=== PATIENT | female | born 1995 | race Caucasian/White ===

== ENCOUNTER 2022-09-16 19:48 | Emergency (ER) | payer OTHER, SELFPAY ==
--- NOTE | 2022-09-16 19:54 | ED_ITS ---
HPI - General Adult General Chief complaint: Urogenital-Female Stated complaint: UTI symptoms, says dehydrated (1 week) Time Seen by Provider: 09/16/22 19:50 History of Present Illness HPI narrative: 27-year-old female nonsmoker with noncontributory medical history presents with a chief complaint of dysuria, frequency and urgency for about 1 week. She states her symptoms have persisted over that time frame are not necessarily any worse but not going away. She denies other symptoms such as dizziness, weakness or lightheadedness. She has no chest pain or shortness of breath and denies any abdominal pain. She denies vaginal bleeding or discharge. She states that she is sexually active but is and has only a single partner. She had an IUD removed about 1 month ago but otherwise unremarkable recent medical history. She denies any systemic complaints such as dizziness, weakness or lightheadedness as mentioned before, additionally no fever no back pain or suprapubic tenderness Review of Systems Review of Systems Narrative: GENERAL: Denies chills, fatigue, malaise, fever, sweats. HEENT: Denies sinus pain, ear pain, sore throat, difficulty swallowing, dizziness. RESPIRATORY: Denies dyspnea, cough, wheezing, hemoptysis, sputum. CARDIOVASCULAR: Denies chest pain, palpitations, orthopnea, edema, GASTROINTESTINAL: Denies nausea, vomiting, abdominal pain, diarrhea, constipation, melena. : See HPI MUSCULOSKELETAL: denies weakness, joint pain, or bony pain SKIN: Denies rash, skin lesions, or other NEUROLOGIC: Denies weakness, headache, numbness, change in speech, confusion, seizures, incoordination. PSYCHIATRIC: No concerning psychosocial issues. 12 point review of systems is negative except for those stated above Patient History Social History Smoking Status: Never smoker Exam Narrative Exam Narrative: GEN: AOx3 and in mild distress EYES: Pupils are equal, round, and reactive to light and accommodation. Extraoccular muscles are intact bilaterally. There is no subconjunctival hemorrhage or exudate. CHEST: Lungs are clear to auscultation bilaterally and free of wheezes, rales, or rhonchi. Heart rate is regular rhythm, there are no murmurs, clicks, rubs, or gallops. There is no chest wall tenderness. ABD: Abdomen is soft and nontender. There is no guarding or rebound. Bowel sounds are normal in all 4 quadrants. There is no mass or organomegaly. EXT: Full painless ROM of all extremities with no loss of sensation or strength. SKIN: Warm, pink, and dry. No erythema or rash Initial Vital Signs Initial Vital Signs: Vital Signs Temperature 97.9 F 09/16/22 20:11 Pulse Rate 78 09/16/22 20:11 Respiratory Rate 20 09/16/22 20:11 Blood Pressure 138/84 09/16/22 20:11 Pulse Oximetry 99 09/16/22 20:11 Oxygen Delivery Method 09/16/22 20:11 Course Orders Ordered: ED Orders 09/16/22 22:16 Chlamydia Gonorrhea PCR -URINE Stat Miscellaneous to [facility] Stat Wet Prep Tric BV Lianet Stat Vital Signs Vital signs: Vital Signs - 8 hr 09/17/22 02:26 Pulse Rate 60 Respiratory Rate 14 Blood Pressure 122/74 Pulse Oximetry 100 Oxygen Delivery Method Room Air Medical Decision Making Lab Data Labs: Lab Results 09/16/22 Range/Units 22:16 Ur Chlamydia DNA (PCR) Not detected N gonorrhoeae DNA (PCR) Not detected Point of Care Testing Test Results Negative Urine Dip Bedside Urine Glucose Negative Bedside Urine Bilirubin - Negative Bedside Urine Ketone - Negative Urine Specific [place] 1.020 Bedside Urine Occult Blood - Negative Bedside Urine pH 6.0 Bedside Urine Protein - Negative Bedside Urine Urobilinogen - Negative Bedside Urine Nitrite - Negative Bedside Urine Leukocytes - Negative Esterase Point of care testing: Point of Care Testing Test Results Negative Urine Dip Bedside Urine Glucose Negative Bedside Urine Bilirubin - Negative Bedside Urine Ketone - Negative Urine Specific [place] 1.020 Bedside Urine Occult Blood - Negative Bedside Urine pH 6.0 Bedside Urine Protein - Negative Bedside Urine Urobilinogen - Negative Bedside Urine Nitrite - Negative Bedside Urine Leukocytes - Negative Esterase MDM Narrative Medical decision making narrative: Patient presents with rather classic UTI symptoms including dysuria, frequency and urgency. She is had no hematuria or systemic complaints. She is not recently been on antibiotics. She denies vaginal bleeding or discharge. We have performed to urine exams and both are absent of any evidence of infection. She was then instructed by nursing to perform self swabs and urine was sent for GC which is also negative. There is no clear etiology of her dysuria at this time but no sign of infection or STD. Some cultures pending, return precautions discussed and questions answered to her apparent satisfaction Discharge Plan Departure Patient Disposition: Home Clinical Impression: Dysuria Instructions: DI for Dysuria -- Adult Activity Restrictions/Additional Instructions: *You have been diagnosed with [dysuria. As we discussed though your signs and symptoms would suggest you have a urine infection we tested you twice and there is no indication of infection common furthermore we tested for pelvic infections too, which have been negative thusfar. There is still an outstanding culture which may take a few days to result, we will call you if any specific treatment would be needed, no news is good news] *What to do: *Please continue to take your regular medications as directed. *Please follow up with your primary care provider in 2-3 days, call for an appointment. Let them know you were seen in the Emergency Department and that we ask that you be seen in follow up. We will electronically transmit a record of today's note if your PCP is in our system *If you do not have a primary care provider please contact the [facility] Resource line at [phone]. They will ask some questions about your medical history and help get you set up with a doctor in the community. *Return to Emergency Department if you should have any new, worsening or concerning symptoms, such as [fever greater than 101 F, shaking chills, worsening pain, persistent vomiting or other bothersome symptoms] Referrals: Drake Khalil [Primary Care Provider] - Visit Report Forms: Patient Portal/API
[2022-09-16 20:11] VITALS: BP 138/84; PULSE 78; RESP 20; TEMP 36.6; O2SAT 99; BMI 35.4
[2022-09-17 02:05] LABS: Urine Chlamydia NOT DETECTED; Urine N gonorrhoeae NOT DETECTED
[2022-09-17 02:26] VITALS: BP 122/74; PULSE 60; RESP 14; O2SAT 100
== END 2022-09-17 02:27 | disposition home or self-care (01) ==
PROVIDERS: Emergency Provider Emergency Medicine
DX: R30.0 Dysuria (principal)
CPT/HCPCS: 81003; 81025; 87210; 87252; 87491; 87591; 99282

== ENCOUNTER 2022-12-07 12:02 | Emergency (ER) | payer OTHER, SELFPAY ==
[2022-12-07 12:05] VITALS: BP 116/66; PULSE 69; RESP 16; TEMP 36.4; O2SAT 96; BMI 38.2
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
[2022-12-07] MEDS: FLUORESCEIN 1 MG STRIP EYE-RIGHT (14:34)
== END 2022-12-07 14:58 | disposition home or self-care (01) ==
PROVIDERS: Emergency Provider Registered Nurse
DX: S05.91XA Unspecified injury of right eye and orbit, initial encounter (principal); W22.8XXA Striking against or struck by other objects, initial encounter
CPT/HCPCS: 99282

== ENCOUNTER 2022-12-12 08:57 | Emergency (ER) | payer OTHER, SELFPAY ==
[2022-12-12 09:04] VITALS: BP 131/77; PULSE 57; RESP 15; TEMP 36.9; O2SAT 98; BMI 38.2
[2022-12-12] MEDS: PROPARACAINE 0.5% OPHTH SOL 1 DROPS EYE-BOTH (09:48)
[2022-12-12] MEDS: FLUORESCEIN 1 MG STRIP EYE-RIGHT (09:50)
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
[2022-12-12] MEDS: TRAMADOL 50 MG TABLET PO (11:24)
[2022-12-12 11:28] VITALS: BP 123/60; PULSE 58; RESP 16; O2SAT 99
== END 2022-12-12 11:29 | disposition home or self-care (01) ==
PROVIDERS: Emergency Provider Emergency Medicine
DX: S05.8X1A Other injuries of right eye and orbit, initial encounter (principal)
CPT/HCPCS: 99283

== ENCOUNTER 2023-06-18 17:07 | Emergency (ER) | payer OTHER, SELFPAY ==
[2023-06-18 17:11] VITALS: BP 140/85; PULSE 97; RESP 18; TEMP 36.7; O2SAT 99; BMI 38.2
--- NOTE | 2023-06-18 17:17 | DI.RAD.S_ITS ---
PROCEDURE: XR CHEST 2V INDICATIONS: cough x 2 weeks, congestion TECHNIQUE: 2 views of the chest were acquired. COMPARISON: None. FINDINGS: Surgical changes and devices: None. Lungs and pleura: Lungs are clear. No pleural effusions or pneumothorax. Mediastinum: Mediastinal contours are normal. Heart size is normal. Bones and chest wall: No suspicious bony abnormalities. Soft tissues appear unremarkable. IMPRESSION: No acute cardiopulmonary abnormality. Dictated by: Josh Trimble M.D. on 06/18/2023 at 17:42 Approved by: Josh Trimble M.D. on 06/18/2023 at 17:43
--- NOTE | 2023-06-18 18:30 | ED.URI ---
HPI - URI/Sore Throat <Ara Capps PA-C - Last Filed: 06/18/23 18:36> General Chief Complaint: Upper Respiratory Symptoms Stated Complaint: possible pneumonia Time Seen by Provider: 06/18/23 17:55 Source: patient Mode of arrival: Ambulatory History of Present Illness HPI Narrative: Patient is a 28-year-old female who presents with 2 weeks of cough. She describes the cough being productive at times, a tactile fever without chills, some upper respiratory congestion. She has seasonal allergies and currently takes Zyrtec and Flonase. She is been using [id number] medications such as NyQuil. She does endorse some midsternal chest pain after coughing. She as never had a blood clot, no unilateral leg swelling, no recent immobilization or long distance travel, no hemoptysis. She has a hormone IUD. Related Data Home Medications Medication Instructions Recorded Confirmed citalopram 40 mg tablet 40 mg PO DAILY 06/18/23 06/18/23 Allergies Allergy/AdvReac Type Severity Reaction Status Date / Time Penicillins Allergy Unknown Verified 06/18/23 17:16 Review of Systems <Ara Capps PA-C - Last Filed: 06/18/23 18:36> Review of Systems ROS Unobtainable: All systems reviewed & are unremarkable except as noted in HPI and below Patient History <Ara Capps PA-C - Last Filed: 06/18/23 18:36> Social History Smoking Status: Never smoker Smoking Status: Never smoker alcohol intake frequency: 0-2 drinks per day Substance Use Type: does not use Exam <Ara Capps PA-C - Last Filed: 06/18/23 18:36> Narrative Exam Narrative: GENERAL: 28 year old patient appears stated age. Well-developed patient, in no distress. NEURO: AOx3. HEAD: Atraumatic. Normocephalic. EYES: Pupils equal round and reactive. Extraocular motions intact. No scleral icterus. No injection or drainage. ENT: Nose without bleeding or purulent drainage. Airway patent. CARDIOVASCULAR: Regular rate and rhythm without murmurs, gallops, or rubs. RESPIRATORY: Clear to auscultation. Breath sounds equal bilaterally. No wheezes, rales, or rhonchi. SKIN: No rash or erythema of visible areas Initial Vital Signs Initial Vital Signs: Vital Signs Temperature 98.1 F 06/18/23 17:11 Pulse Rate 97 H 06/18/23 17:11 Respiratory Rate 18 06/18/23 17:11 Blood Pressure 140/85 06/18/23 17:11 Pulse Oximetry 99 06/18/23 17:11 Oxygen Delivery Method Room Air 06/18/23 17:11 <Linda Morris DO - Last Filed: 06/25/23 07:28> Initial Vital Signs Initial Vital Signs: Vital Signs Temperature 98.1 F 06/18/23 17:11 Pulse Rate 97 H 06/18/23 17:11 Respiratory Rate 18 06/18/23 17:11 Blood Pressure 140/85 06/18/23 17:11 Pulse Oximetry 99 06/18/23 17:11 Oxygen Delivery Method Room Air 06/18/23 17:11 Scores <Ara Capps PA-C - Last Filed: 06/18/23 18:36> PERC Score Age greater than or equal to 50 years: No Heart rate greater than or equal to 100 bpm: No Room Air O2 Sat less than 95%: No Unilateral leg swelling: No Recent trauma or surgery: No Hemoptysis: No Prior PE or DVT: No Hormone Use: Yes Total PERC Score: 1 <DO Barbi Donovan Last Filed: 06/25/23 07:28> PERC Score Total PERC Score: 1 Course <Ara Capps PA-C - Last Filed: 06/18/23 18:36> Orders Ordered: ED Orders 06/18/23 17:17 XR chest 2V Stat Vital Signs Vital signs: Vital Signs - 8 hr 06/18/23 17:11 Temperature 98.1 F Pulse Rate 97 H Respiratory Rate 18 Blood Pressure 140/85 Pulse Oximetry 99 Oxygen Delivery Method Room Air <Linda Morris DO - Last Filed: 06/25/23 07:28> Orders Ordered: ED Orders 06/18/23 17:17 XR chest 2V Stat Vital Signs Vital signs: Vital Signs - 8 hr 06/18/23 17:11 Temperature 98.1 F Pulse Rate 97 H Respiratory Rate 18 Blood Pressure 140/85 Pulse Oximetry 99 Oxygen Delivery Method Room Air MDM - URI/Sore Throat <Ara Capps PA-C - Last Filed: 06/18/23 18:36> Imaging Data Chest x-ray: Radiologist's Impression: PROCEDURE:? XR CHEST 2V ? INDICATIONS:? cough x 2 weeks, congestion ? TECHNIQUE:? 2 views of the chest were acquired.? ? COMPARISON:? None. ? FINDINGS:? ? Surgical changes and devices:? None.? ? Lungs and pleura:? Lungs are clear.? No pleural effusions or pneumothorax.? ? Mediastinum:? Mediastinal contours are normal.? Heart size is normal.? ? Bones and chest wall:? No suspicious bony abnormalities.? Soft tissues appear unremarkable.? ? ? IMPRESSION:? No acute cardiopulmonary abnormality. ? ? ? Dictated by: Josh Trimble M.D. on 06/18/2023 at 17:42 ? ? Approved by: Josh Trimble M.D. on 06/18/2023 at 17:43 ? [facility] Narrative Medical decision making narrative: Multiple etiologies for patient's symptoms considered including, but not limited to: Pneumonia, bronchitis, asthma exacerbation, PE. Chest x-ray without evidence of pneumonia and no wheeze on exam with no history of asthma. PERC = 1, no hypoxia or tachycardia or chest pain on my exam, no further workup indicated for PE. Suspect bronchitis. Discussed treatment; patient already has albuterol MDI, offered Tessalon Perles, which she declines. Patient's symptoms improved over duration of stay with above-stated therapies. Findings and discharge diagnosis discussed with patient/family followed by verbalization of understanding Return precautions discussed with patient/family whom verbalize understanding of diagnosis and plan Discharge Plan Departure Patient Disposition: Home Clinical Impression: Bronchitis Instructions: DI for Acute Bronchitis Activity Restrictions/Additional Instructions: *You have been diagnosed with bronchitis. Your chest x-ray was normal and did not show pneumonia. The treatment of bronchitis is symptomatic, including fluids, rest, [id number] cough and cold medicines and albuterol inhaler as needed. Many viral coughs can last 3 weeks or longer. Please continue taking care of yourself and return if you develop chest pain or shortness of breath. *What to do: *Please continue to take your regular medications as directed. [ ] New medication prescriptions sent to your pharmacy: [ ] [ ] New medication written as a paper prescription [x ] No new medications given *Please follow up with your primary care provider in 2-3 days, call for an appointment. Let them know you were seen in the Emergency Department and that we ask that you be seen in follow up. We will electronically transmit a record of today's note if your PCP is in our system *If you do not have a primary care provider please contact the [facility] Resource line at [phone]. They will ask some questions about your medical history and help get you set up with a doctor in the community. *Return to Emergency Department if you should have any new, worsening or concerning symptoms, such as [fever greater than 101 F, shaking chills, worsening pain, persistent vomiting or other concerning symptoms]. Prescriptions: No Action citalopram 40 mg Tablet 40 mg PO DAILY Referrals: Provider,Drake GARVEY [Primary Care Provider] - Stand Alone Forms: Patient Portal/API, Work Release Note <Linda Morris DO - Last Filed: 06/25/23 07:28> Cosign ED Attending Yue Attestation: I was immediately available in the department for consultation. Documentation has been reviewed.
[2023-06-18 18:37] VITALS: BP 127/78; PULSE 70; RESP 18; O2SAT 99
== END 2023-06-18 18:38 | disposition home or self-care (01) ==
PROVIDERS: Emergency Provider Physician Assistant
DX: J40 Bronchitis, not specified as acute or chronic (principal)
CPT/HCPCS: 71046; 99283

== ENCOUNTER 2023-10-27 16:18 | Emergency (ER) | payer OTHER, SELFPAY ==
[2023-10-27 16:27] VITALS: BP 125/65; PULSE 89; RESP 18; TEMP 36.6; O2SAT 97; BMI 37.8
--- NOTE | 2023-10-27 16:39 | DI.RAD.S_ITS ---
PROCEDURE: XR CHEST 2V INDICATIONS: Wet cough with sputum and SOB since 10/06/2023 TECHNIQUE: 2 views of the chest were acquired. COMPARISON: [facility], , XR CHEST 2V, 06/18/2023, 17:33. FINDINGS: Surgical changes and devices: None. Lungs and pleura: Lungs are clear. No pleural effusions or pneumothorax. Mediastinum: Mediastinal contours are normal. Heart size is normal. Bones and chest wall: No suspicious bony abnormalities. Soft tissues appear unremarkable. IMPRESSION: No acute cardiopulmonary abnormality is seen. Approved by: Christoph Gaytan M.D. on 10/27/2023 at 16:31
[2023-10-27 17:31] LABS: Adenovirus Not Detected (Not Detect); B. parapertussis Not Detected (Not Detecte); Bordetella pertussis Not Detected (Not Detect); Chlamydophila pneumoniae Not Detected (Not Detect); Coronavirus 229E Not Detected (Not Detect); Coronavirus HKU1 Not Detected (Not Detect); Coronavirus NL 63 Not Detected (Not Detect); Coronavirus OC43 Not Detected (Not Detect); Human Metapneumovirus Not Detected (Not Detect); Human Rhinovirus/Enterovirus Not Detected (Not Detect); Influenza A Not Detected (Not Detect); Influenza B Not Detected (Not Detect); Mycoplasma pneumoniae Not Detected (Not Detect); Parainfluenza Virus 1 Not Detected (Not Detect); Parainfluenza Virus 2 Not Detected (Not Detect); Parainfluenza Virus 3 Not Detected (Not Detect); Parainfluenza Virus 4 Not Detected (Not Detect); Respiratory Syncytial Virus Not Detected (Not Detect); SARS- CoV-2 Detected (Not Detecte)
--- NOTE | 2023-10-27 17:50 | ED_ITS ---
HPI - URI/Sore Throat <Anupama Adames PA-C - Last Filed: 10/27/23 19:43> General Chief Complaint: Upper Respiratory Symptoms Stated Complaint: thinks poss pnemonia Source: patient Mode of arrival: Ambulatory History of Present Illness HPI Narrative: Patient is a 28-year-old female presenting for evaluation of cough x3 days. She had COVID 1 month ago. She is concerned about possible pneumonia because she c an hear faint crackling noises at the end of inspiration. She reports increased congestion mostly in her ears with a small amount of congestion in her nose. She denies sore throat. She denies difficulty breathing. She does have asthma and uses an inhaler occasionally. She states she has used it somewhat more frequently, but denies significant feeling of tightness in her chest. Around 2:00 p.m. this afternoon, she noted pain with urination. She reports nausea and vomiting as well. She denies abdominal pain. She denies fever, but states she generally does not get a fever. She did pull out some quite wet looking wax from her left ear earlier today, but states she has not having pain in her left ear canal at this time. Denies history of kidney issues, but states frequent UTIs. She denies previous kidney infection. She states that she isn't having any abdominal pain, but noted some pain with urination this morning. She denies urgency or frequency of urination. Related Data Home Medications Medication Instructions Recorded Confirmed citalopram 40 mg tablet 40 mg PO DAILY 06/18/23 06/18/23 Previous Rx's Medication Instructions Recorded benzonatate 100 mg capsule 100 mg PO TID PRN cough #20 caps 10/27/23 Allergies Allergy/AdvReac Type Severity Reaction Status Date / Time Penicillins Allergy Unknown Verified 10/27/23 16:27 Review of Systems <Anupama Adames PA-C - Last Filed: 10/27/23 19:43> Review of Systems Narrative: See HPI Patient History <Anupama Adames PA-C - Last Filed: 10/27/23 19:43> Social History Smoking Status: Never smoker Smoking Status: Never smoker alcohol intake frequency: 0-2 drinks per day Substance Use Type: does not use Exam <Anupama Adames PA-C - Last Filed: 10/27/23 19:43> Initial Vital Signs Initial Vital Signs: Vital Signs Temperature 97.9 F 10/27/23 16:27 Pulse Rate 89 10/27/23 16:27 Respiratory Rate 18 10/27/23 16:27 Blood Pressure 125/65 10/27/23 16:27 Pulse Oximetry 97 10/27/23 16:27 Oxygen Delivery Method Room Air 10/27/23 16:27 GENERAL: 28 year old patient appears stated age. Well-developed patient, in no acute distress. HEAD: Atraumatic. Normocephalic. EYES: Pupils equal round and reactive. Extraocular motions intact. No scleral icterus. No injection or drainage. ENT: . Nares are without bleeding or purulent drainage. Throat without erythema, No tonsillar hypertrophy or exudate noted. Airway patent. TM visualized bilaterally with good cone of light, canals clear bilaterally, with no swelling or evidence of external canal infection bilaterally. She is somewhat tender to palpation of left ear. Pinna, tragus are non tender to palpation. NECK: Trachea midline. Non tender, No cervical lymphadenopathy CARDIOVASCULAR: Regular rate and rhythm without murmurs, gallops, or rubs. RESPIRATORY: Clear to auscultation. Breath sounds equal bilaterally. No wheezes, faint crackles heard at the very end of expiration unchanged by cough, present throughout lungs. NEURO: AOx3. SKIN: No rash or erythema of visible areas <Pippa Sanchez DO - Last Filed: 10/27/23 21:04> Initial Vital Signs Initial Vital Signs: Vital Signs Temperature 97.9 F 10/27/23 16:27 Pulse Rate 89 10/27/23 16:27 Respiratory Rate 18 10/27/23 16:27 Blood Pressure 125/65 10/27/23 16:27 Pulse Oximetry 97 10/27/23 16:27 Oxygen Delivery Method Room Air 10/27/23 16:27 Course <STEPHEN Paz Last Filed: 10/27/23 19:43> Orders Ordered: ED Orders 10/27/23 16:36 Respiratory Panel (Film Array) Stat 10/27/23 16:39 XR chest 2V Stat Discontinued Medications Dexamethasone (Dexamethasone 10 Mg/Ml Vial) 10 mg PO NOW ONE Stop: 10/27/23 19:05 Last Admin: 10/27/23 19:07 Dose: 10 mg Documented By: MAUREEN Vital Signs Vital signs: Vital Signs - 8 hr 10/27/23 16:27 10/27/23 19:15 Temperature 97.9 F 98.4 F Pulse Rate 89 68 Respiratory Rate 18 16 Blood Pressure 125/65 132/61 Pulse Oximetry 97 100 Oxygen Delivery Method Room Air Room Air <Pippa Sanchez DO - Last Filed: 10/27/23 21:04> Orders Ordered: ED Orders 10/27/23 16:36 Respiratory Panel (Film Array) Stat 10/27/23 16:39 XR chest 2V Stat Discontinued Medications Dexamethasone (Dexamethasone 10 Mg/Ml Vial) 10 mg PO NOW ONE Stop: 10/27/23 19:05 Last Admin: 10/27/23 19:07 Dose: 10 mg Documented By: MAUREEN Vital Signs Vital signs: Vital Signs - 8 hr 10/27/23 16:27 10/27/23 19:15 Temperature 97.9 F 98.4 F Pulse Rate 89 68 Respiratory Rate 18 16 Blood Pressure 125/65 132/61 Pulse Oximetry 97 100 Oxygen Delivery Method Room Air Room Air MDM - URI/Sore Throat <Anupama Adames PA-C - Last Filed: 10/27/23 19:43> Lab Data Labs: Lab Results 10/27/23 Range/Units 16:36 Chlamy pneumoniae PCR Not detected (Not Detect) Adenovirus (PCR) Not detected (Not Detect) B.parapertussis DNA PCR Not detected (Not Detecte) Coronavirus OC43 (PCR) Not detected (Not Detect) Coronavirus HKU1 (PCR) Not detected (Not Detect) Coronavirus 229E (PCR) Not detected (Not Detect) SARS-CoV-2 (PCR) Detected H (Not Detecte) Coronavirus NL63 (PCR) Not detected (Not Detect) Human Metapneumovir PCR Not detected (Not Detect) Influenza Type A (PCR) Not detected (Not Detect) Influenza Type B (PCR) Not detected (Not Detect) M. pneumoniae (PCR) Not detected (Not Detect) Parainfluenza 1 (PCR) Not detected (Not Detect) Parainfluenza 2 (PCR) Not detected (Not Detect) Parainfluenza 3 (PCR) Not detected (Not Detect) Parainfluenza 4 (PCR) Not detected (Not Detect) RSV (PCR) Not detected (Not Detect) Entero/Rhino (PCR) Not detected (Not Detect) Point of Care Testing Test Results Negative Urine Dip Bedside Urine Glucose Negative Bedside Urine Bilirubin - Negative Bedside Urine Ketone - Negative Urine Specific Merritt 1.030 Bedside Urine Occult Blood - Negative Bedside Urine pH 6.0 Bedside Urine Protein - Negative Bedside Urine Urobilinogen - Negative Bedside Urine Nitrite - Negative Bedside Urine Leukocytes - Negative Esterase Imaging Data Chest x-ray: Radiologist's Impression: PROCEDURE: XR CHEST 2V INDICATIONS: Wet cough with sputum and SOB since 10/06/2023 TECHNIQUE: 2 views of the chest were acquired. COMPARISON: [facility], , XR CHEST 2V, 06/18/2023, 17:33. FINDINGS: Surgical changes and devices: None. Lungs and pleura: Lungs are clear. No pleural effusions or pneumothorax. Mediastinum: Mediastinal contours are normal. Heart size is normal. Bones and chest wall: No suspicious bony abnormalities. Soft tissues appear unremarkable. IMPRESSION: No acute cardiopulmonary abnormality is seen. Approved by: Christoph Gaytan M.D. on 10/27/2023 at 16:31 [facility] Narrative Medical decision making narrative: Patient is a 28-year-old female presenting for evaluation of cough x3 days. She is concerned about possible pneumonia. Discussed with patient that chest x-ray today is negative showing no evidence of pneumonia. Due to her underlying asthma and light crackles heard on exam despite negative chest x-ray, recommend treatment with steroid to help reduce light sensation of chest tightness. Otherwise, recommend increased rest, fluids Tylenol ibuprofen as needed to treat. Discussed pros and cons of Paxlovid. Having asthma does put her in a higher-risk category for a poor outcome from COVID, but as she has no high blood pressure, no kidney disease, no heart disease, no comorbidities besides asthma and she is 28 years old, after discussion of possible side effects such as rebound COVID, she would prefer to continue supportive care at home without Paxlovid use. UA does not show evidence of UTI. Urine is negative. Discussed these results with patient, and she is comfortable with discharge home to continue supportive care and monitoring her symptoms. Recommend she returned to the emergency department if she should develop increased worsening shortness of breath, difficulty caring for herself or other concerning signs or symptoms. Multiple etiologies for patient's symptoms considered including, but not limited to: Pneumonia, bronchitis, COVID, UTI, , gastroenteritis Patient's symptoms improved over duration of stay with above-stated therapies. Findings and discharge diagnosis discussed with patient/family followed by verbalization of understanding Return precautions discussed with patient/family whom verbalize understanding of diagnosis and plan <Pippa Shaggy Sanchez, DO - Last Filed: 10/27/23 21:04> Lab Data Labs: Lab Results 10/27/23 Range/Units 16:36 Chlamy pneumoniae PCR Not detected (Not Detect) Adenovirus (PCR) Not detected (Not Detect) B.parapertussis DNA PCR Not detected (Not Detecte) Coronavirus OC43 (PCR) Not detected (Not Detect) Coronavirus HKU1 (PCR) Not detected (Not Detect) Coronavirus 229E (PCR) Not detected (Not Detect) SARS-CoV-2 (PCR) Detected H (Not Detecte) Coronavirus NL63 (PCR) Not detected (Not Detect) Human Metapneumovir PCR Not detected (Not Detect) Influenza Type A (PCR) Not detected (Not Detect) Influenza Type B (PCR) Not detected (Not Detect) M. pneumoniae (PCR) Not detected (Not Detect) Parainfluenza 1 (PCR) Not detected (Not Detect) Parainfluenza 2 (PCR) Not detected (Not Detect) Parainfluenza 3 (PCR) Not detected (Not Detect) Parainfluenza 4 (PCR) Not detected (Not Detect) RSV (PCR) Not detected (Not Detect) Entero/Rhino (PCR) Not detected (Not Detect) Point of Care Testing Test Results Negative Urine Dip Bedside Urine Glucose Negative Bedside Urine Bilirubin - Negative Bedside Urine Ketone - Negative Urine Specific Merritt 1.030 Bedside Urine Occult Blood - Negative Bedside Urine pH 6.0 Bedside Urine Protein - Negative Bedside Urine Urobilinogen - Negative Bedside Urine Nitrite - Negative Bedside Urine Leukocytes - Negative Esterase Discharge Plan Departure Patient Disposition: Home Clinical Impression: COVID-19 Instructions: COVID-19 Activity Restrictions/Additional Instructions: Thank you for coming in today for your care. You were diagnosed COVID 19. We discussed benefits and possible side effects of Paxlovid, and opted not to pursue this treatment at this time. Discussed that your course of COVID will likely start to improve over the next several days. Per CDC guidelines, you must stay quarantine for the 1st 5 days then if you're afebrile without the use of fever reducers for 24 hours prior, you can may go out in the community wearing a mask for the following 5 days, after which time you may discontinue wearing a mask. You may continue using your albuterol inhaler as needed. Your chest x-ray did not show any evidence of pneumonia. Your urinalysis did not show any evidence of or urinary tract infection. Recommend treatment with rest, increase fluids, Tylenol and ibuprofen as needed in addition to albuterol inhaler. I will also provide a prescription of Celso Ritchie for you to [facility] at [facility] in [place]. It was a pleasure meeting you today. Prescriptions: New benzonatate 100 mg capsule 100 mg PO TID PRN (Reason: cough) Qty: 20 0RF Rx Instructions: May take 1-2 tablets 3 times a day No Action citalopram 40 mg Tablet 40 mg PO DAILY Referrals: ProviderDrake [Primary Care Provider] - Stand Alone Forms: Patient Portal/API ED Sign-out <Pippa Sanchez DO - Last Filed: 10/27/23 21:04> Cosign ED Attending Talaature Attestation: I was immediately available in the department for consultation.
[2023-10-27] MEDS: DEXAMETHASONE 10 MG/ML VIAL PO (19:07)
[2023-10-27 19:15] VITALS: BP 132/61; PULSE 68; RESP 16; TEMP 36.9; O2SAT 100
== END 2023-10-27 19:23 | disposition home or self-care (01) ==
PROVIDERS: Emergency Medicine; Emergency Provider Physician Assistant
DX: U07.1 COVID-19 (principal); R07.9 Chest pain, unspecified; Z86.16 Personal history of COVID-19
CPT/HCPCS: 71046; 81003; 81025; 87633; 99283; J1100

== ENCOUNTER → 2024-04-07 17:19 | Outpatient (CLI) | payer OTHER, SELFPAY ==
--- NOTE | 2024-04-07 17:20 | DI.MRI.S_ITS ---
PROCEDURE: MR LUMBAR SPINE WO CON INDICATIONS: LOW BACK PAIN LUMBAR TECHNIQUE: Noncontrast sagittal T1 spin echo and T2 fast echo, sagittal STIR, and T2 fast spin echo through the lumbar spine. In cases with scoliosis, additional coronal T2 fast spin echo may be performed. COMPARISON: None. FINDINGS: Image quality: Excellent. Alignment and Curvature: Straightening of the normal lumbar lordosis. Minimal retrolisthesis of L4 on L5 and L5 on S1. Bone Marrow: Marrow is of normal overall signal. No acute vertebral body compression fractures. Spinal Cord: Conus medullaris terminates at the L1 level. Visualized cord demonstrates normal signal and size. Paraspinous Soft Tissues: No paravertebral masses. T12-L1: Normal appearance. L1-L2: Normal appearance. L2-L3: Normal appearance. L3-L4: Normal appearance. L4-L5: Facet arthropathy. No central canal stenosis. Mild bilateral neural foraminal stenosis. L5-S1: Disc desiccation. Mild facet arthropathy. No central canal stenosis. Moderate left and mild right neural foraminal stenosis. IMPRESSION: 1. Mild degenerative changes at L4-5 and L5-S1. 2. No significant central canal stenosis. 3. Moderate left neural foraminal stenosis at L5-S1. Dictated by: Damien Urbina M.D. on 04/07/2024 at 17:52 Approved by: Damien Urbina M.D. on 04/07/2024 at 17:55
== END ==
LOC: MRI 17:20
DX: M54.50 Low back pain, unspecified (principal); M47.816 Spondylosis without myelopathy or radiculopathy, lumbar region; M48.061 Spinal stenosis, lumbar region without neurogenic claudication; M47.817 Spondylosis without myelopathy or radiculopathy, lumbosacral region; M48.07 Spinal stenosis, lumbosacral region
CPT/HCPCS: 72148